=== PATIENT | male | born 1985 | race Hispanic/Latino ===

== ENCOUNTER 2020-05-01 19:58 | Emergency (ER) | payer SELFPAY ==
[2020-05-01 20:05] VITALS: BP 111/71; PULSE 102; RESP 15; TEMP 36.6; O2SAT 99
--- NOTE | 2020-05-01 20:19 | ED.PSYCH ---
HPI - Psych General Chief Complaint: Psychiatric Symptoms Stated Complaint: Psych eval. cant sleep, anxiety,depression Source: patient and RN notes reviewed Mode of arrival: ambulatory Limitations: no limitations History of Present Illness HPI Narrative: Patient states he has a history of being bipolar. He has not been on any medications for 4 years. He denies any suicidal or homicidal ideations. He says him a lot of difficulty sleeping. He recently he has had visual hallucinations that he was in [facility] and there angels worshiping God. He is also having auditory hallucinations telling him that he is . He pinches am self to make sure is alive. He is afraid to go to sleep because he thinks he will during sleep. Patient recently moved here from [place] He has moved in with his mother. She apparently also has bipolar and he thinks they are feeding off of each other. Onset (ago): day(s) (2) Duration: intermittent History of same: Yes Relieving factors: none Exacerbating factors: none Associated psychiatric symptoms: depression, auditory hallucinations and visual hallucinations Associated symptoms: denies other symptoms Treatments prior to arrival: none Related Data Allergies Allergy/AdvReac Type Severity Reaction Status Date / Time haloperidol [From Haldol] AdvReac Cramping Verified 05/01/20 20:18 of the Muscles lurasidone [From Latuda] AdvReac Cramping Verified 05/01/20 20:18 of the Muscles Review of Systems Review of Systems: All systems reviewed & are unremarkable except as noted in HPI and below PMFSH Past Medical History Medical History (Updated 05/01/20 @ 21:29 by Monroe Graf MD) Bipolar affect, depressed Hyperlipidemia Surgical History Surgical History (Updated 05/01/20 @ 20:46 by Monroe Graf MD) No pertinent past surgical history Family History Family History (Updated 05/01/20 @ 20:47 by Monroe Graf MD) Mother Bipolar 1 disorder Social History Social History (Updated 05/01/20 @ 20:46 by Monroe Graf MD) Smoking status: Current some day smoker Tobacco type: cigars Alcohol intake: never Substance use: never Exam Const: General: healthy appearing and no acute distress Nutritional Appearance: well nourished and thin Orientation/consciousness: patient oriented x3 HENMT: Head: normal to inspection Ears: external ears normal Eyes: Conjunctivae: conjunctivae normal Pupils: Equal, round and reactive pupils present EOM: EOMs intact bilaterally Neck: Neck: normal visual inspection Resp: Effort & Inspection: normal respiratory effort Auscultation: clear to auscultation bilaterally Cardio: Rate: regular rate Rhythm: regular rhythm GI: GI Palp: Yes Soft to palpation and No Tenderness to palpation present (GI) Auscultation: normal bowel sounds Back/Spine/Pelvis: Cervical Spine: cervical ROM normal Thoracic/Lumbar Spine: thoraco-lumbar ROM normal Skin: General skin exam: normal color Rashes: no rashes Neuro: General: patient oriented x3, moves all extremities and no focal motor deficits Speech: normal speech Gait exam (Neuro): Normal gait present Extrem: General: normal to inspection and no clubbing, cyanosis or edema Psych: Appearance: grossly normal and well kempt Mental Status: mental status grossly normal Affect: Anxious affect present Attitude: cooperative Thought content: Yes Normal thought content present Insight: Good insight present (Psych) Judgement: Good judgement present (Psych) Course Course Emergency Course: Patient asked for something for sleep. I offered him trazodone he said that does not work. I explained to him I would not give him any benzodiazepines from the emergency. He would have to get those from primary care provider also any long-term antianxiety or antidepressant would have to be prescribed from a primary care provider. Someone who could monitor his progress while taking the medication. I Of
[2020-05-01 20:53] LABS: Hematocrit 46.8 % (40.0-54.0); Hemoglobin 15.8 g/dL (14.0-18.0); Mean Corpuscular HGB Conc 33.8 g/dL (32.0-36.0); Mean Corpuscular Hemoglobin 32.6 pg (27.0-31.0); Mean Corpuscular Volume 96.5 fL (78.0-102.0); Mean Platelet Volume 10.8 fl (8.7-11.0); Platelet Count Result 211 K/mm3 (150-420); Red Blood Count 4.85 M/mm3 (4.70-6.10); Red Cell Distribution Width 12.4 % (11.6-14.4); White Blood Count 11.2 K/mm3 (4.8-10.8)
[2020-05-01 21:02] LABS: Amphetamine Screen Urine Negative (Negative); Barbiturate Screen Urine Negative (Negative); Benzodiazepines Screen Urine Negative (Negative); Cannabinoid Screen Urine Negative (Negative); Cocaine Screen Urine Negative (Negative); Methadone Screen Urine Negative (Negative); Opiate Screen Urine Negative (Negative); Phencyclidine Screen Urine Negative (Negative)
[2020-05-01 21:10] LABS: Platelet Estimate Adequate (Adequate)
[2020-05-01 21:11] LABS: Band Neutrophils Percent 0 % (0-6); Basophils Absolute Manual 0.11 K/mm3 (0-0.1); Basophils Percent Manual 1 % (0-1); Eosinophils Percent Manual 25 % (1-6); Lymphocytes Percent Manual 25 % (18-44); Monocytes Absolute Manual 0.56 K/mm3 (0.1-0.90); Monocytes Percent Manual 5 % (3-9); Neutrophils Absolute Manual 4.92 K/mm3 (1.3-6.7); Neutrophils Percent Manual 44 % (46-73); Total Cells Counted 100
[2020-05-01 21:15] LABS: Acetaminophen < 2 ug/mL (10-30); Alanine Aminotransferase 31 U/L (16-63); Albumin Level 4.4 g/dL (3.4-5.0); Alkaline Phosphatase 62 U/L (46-116); Anion Gap 8 mmol/L (8-16); Aspartate Amino Transferase 12 U/L (15-37); Bilirubin,Total 0.3 mg/dL (0.00-1.00); Blood Urea Nitrogen 13 mg/dL (7-18); Calcium 8.9 mg/dL (8.5-10.1); Carbon Dioxide 25 mmol/L (21-32); Chloride 106 mmol/L (98-108); Estimated CRCL calculation 101 ml/min; Estimated Glomerular Filt Rate > 60; Glucose 85 mg/dL (70-99); Osmolality Calculated 287 mOsm/kg (285-295); Salicylate 7.2 mg/dL (2.8-20.0); Sodium 139 mmol/L (136-145); Thyroid Stimulating Hormone 0.62 uIU/mL (0.36-3.74); Total Protein 7.4 g/dL (6.4-8.2)
[2020-05-01 21:16] LABS: Ethanol < 3 mg/dL (0-6)
[2020-05-01] MEDS: traZODone HCL 50 MG TABLET 100 MG PO (21:45)
[2020-05-01 21:47] VITALS: RESP 15; O2SAT 100
== END 2020-05-01 21:48 | disposition home or self-care (01) ==
PROVIDERS: Emergency Provider Emergency Medicine
DX: F31.89 Other bipolar disorder (principal)
CPT/HCPCS: 36415; 80053; 80307; 84443; 85025; 99283; A9270